=== PATIENT | female | born 1985 | race Caucasian/White ===

== ENCOUNTER 2017-05-20 15:12 | Emergency (ER) | payer OTHER ==
[~2017-05-20] VITALS: Ht 160 cm; Wt 87.5 kg
[~2017-05-20 15:12] MED LIST: AMOX-366 PO
[2017-05-20 15:14] VITALS: BP 143/95; PULSE 107; RESP 18; O2SAT 98
--- NOTE | 2017-05-20 15:53 | ED.REPORT ---
HPI-Dental/Mouth Prob Date of Service May 20, 2017 ED Provider: Vinicio De Los Santos DO The pt is a 31 y/o female who presents to the ED complaining of tooth pain. The pain is described as a "throbbing" in her upper and lower left molars radiating into her jaw. She has had the pain for over a week, but it has worsened acutely in the last two days. She has not been able to tolerate pain despite using Tylenol. The pt also reports an occasional "bad taste" in her mouth. The pt has not talked to her dentist about her symptoms. Nursing Notes Stated Complaint: LEFT SIDE TOOTH PAIN Chief Complaint: Dental Nursing Notes Reviewed: Yes Allergies: Coded Allergies: azithromycin (Verified Allergy, Intermediate, hives, 05/20/17) Scheduled Amoxicillin (Amoxicillin) 500 Mg Capsule 500 MG PO TID Amoxicillin/Clav K 875-125 mg (Augmentin 875-125 mg) 1 Each Tablet 1 TABLET PO BID Scheduled PRN Hydrocodone-Acetaminophen 5-325 mg (Hydrocodone-Acetaminophen 5-325 mg) 1 Each Tablet 1 TABLET PO Q4H PRN PRN For Pain General Time Seen by MD: 15:52 Chief Complaint Tooth pain Hx Obtained From: Patient Arrived By: Walk-in Onset Occurred: 1 week ago Symptom Duration: Constant Quality: Throbbing Recent Healthcare: No recent doctor visit, No recent hospitalization Similar Sx Previous: Yes Past Medical History Past Medical History None reported Past Surgical History None reported Smoking History Unknown if Ever Smoker Ambulatory Status Independent Review of Systems Review of Systems Note: jaw pain radiating from tooth occasional "bad taste" in mouth Constitutional: Denies: Fever Ears / Nose / Throat: Reports: Toothache Respiratory: Denies: Non-productive cough, Shortness of breath GI: Denies: Abdominal pain, Vomiting Complete sys rev & neg: except as marked. Eyes: Denies: Blurred bilateral Cardiovascular: Denies: Chest pain Musculoskeletal: Denies: Back pain, Neck pain Neurologic: Denies: Seizure, Unable to speak Physical Exam Initial Vital Signs Vital Signs (First) Date Time Temp Pulse Resp B/P Pulse Ox O2 Delivery O2 Flow Rate FiO2 05/20/17 15:14 36.6 107 18 143/95 98 Room Air Initial VS: Reviewed General/Constitutional: Well-developed, Well-nourished Head / Eyes: Atraumatic, Normocephalic, PERRL Respiratory: Breath sounds normal, Clear to auscultation, No respiratory distress Cardiovascular: Regular rate & rhythm, Heart sounds normal, Intact distal pulses Skin: Warm, Dry, No cyanosis Neurologic: Alert, Oriented, Nonfocal Psychiatric: Mood/affect normal, Behavior normal ENT: Atraumatic Dental / Gums: Positive: Decay extensive (#15 and #18) Neck: Atraumatic Re-Eval/Medical Decision Source of Hx: Old records Re-Evaluation/Progress : Time of Eval: 16:08 Patient Status: Condition improved Re-Evaluation/Progress Note: Pt rechecked. Informed pt of unclear diagnosis and plan for discharge. The pt understands and agrees with plan for discharge. F/U instructions and RTER warnings given. All questions addressed at this time. Counseled Regarding: Diagnosis, Need for follow-up, When/why to return to ED Discharge & Departure Primary Impression: Dental caries Additional Impression: Toothache Disposition: Home Discharge Condition All VS Reviewed: Yes Condition: Stable Patient Instructions: Dental Caries (ED), Dental Abscess (ED) Additional Instructions: Thank you for trusting us with your care today. Use ibuprofen 800 mg 3 times a day for your pain. You are given a small supply of [place] for breakthrough pain. Follow up with your dentist within the next several days for more definitive treatment. Also take amoxicillin as prescribed to treat any potential infection of the tooth. Referrals: Steven Goldman MD (PCP) Scribe Attestation Portions of this note were transcribed by Nimesh Rockwell and Alfonso Kebede. I, Dr. Robert De Los Santos personally performed the history, physical exam and medical decision-making; I reviewed and confirmed the accuracy of the information in the transcribed note. Signed by: Nimesh Rockwell and Alfonso Kebede, Scribe, 05/20/17. copies to: Steven Goldman MD, Gary R DO May 20, 2017 15:53 Nimesh Rockwell May 20, 2017 16:07 ALFONSO KEBEDE May 20, 2017 17:20
[2017-05-20] MEDS ORDERED: HYDR-4003 PO (16:32)
[2017-05-20] MEDS ORDERED: AMOX500C2 PO (16:32)
[2017-05-20 16:49] VITALS: BP 143/95; PULSE 99; RESP 18; O2SAT 98
== END 2017-05-20 16:35 | disposition home or self-care (01) ==
LOC: SED 15:12
DX: K02.9 Dental caries, unspecified (principal); K08.89 Other specified disorders of teeth and supporting structures; Z88.1 Allergy status to other antibiotic agents
CPT/HCPCS: 99283; J1885